=== PATIENT | female | born 1970 | race Caucasian/White ===

== ENCOUNTER 2021-01-30 05:14 | Emergency (ER) | payer OTHER ==
[~2021-01-30] VITALS: Ht 162.6 cm; Wt 79.8 kg
[2021-01-30] MEDS ORDERED: ONDANSETRON HCL 4 MG ORAL DISINTEGRATING TAB PO ONE (05:45)
[2021-01-30] MEDS ORDERED: ACETAMINOPHEN 325 MG TAB PO PRN (05:45)
[2021-01-30] MEDS ORDERED: KETOROLAC TROMETHAMINE 60 MG/2 ML VIAL IM ONE (05:45)
[2021-01-30] MEDS ORDERED: ACETAMINOPHEN 325 MG TAB ONE (05:57)
[2021-01-30] MEDS ORDERED: KETOROLAC TROMETHAMINE 30 MG/ML VIAL ONE (05:57)
[2021-01-30] MEDS ORDERED: ONDANSETRON HCL 4 MG ORAL DISINTEGRATING TAB ONE (05:57)
[2021-01-30] MEDS ORDERED: IBUPROFEN400 MG PO (06:24)
[2021-01-30] MEDS ORDERED: METHOCARBAMOL750 MG PO (06:24)
== END 2021-01-30 11:00 | disposition home or self-care (01) ==
LOC: ER 05:54
DX: S39.012A Strain of muscle, fascia and tendon of lower back, initial encounter (principal); S60.011A Contusion of right thumb without damage to nail, initial encounter; M79.644 Pain in right finger(s); V43.52XA Car driver injured in collision with other type car in traffic accident, initial encounter; Y92.488 Other paved roadways as the place of occurrence of the external cause; F17.210 Nicotine dependence, cigarettes, uncomplicated
CPT/HCPCS: 72100; 72131; 73140; 99283; J1885; Q0162